=== PATIENT | female | born 1960 | race Caucasian/White ===

== ENCOUNTER 2018-07-08 07:56 | Emergency (ER) | payer BC ==
[2018-07-08] MEDS ORDERED: Ibuprofen TAB* 600 MG PO ONE (08:16)
[2018-07-08 08:20] VITALS: BP 142/80
--- NOTE | 2018-07-08 08:51 | UC ---
Lower Extremity/Ankle HPI - HPI Summary HPI Summary: 58-year-old woman comes in to clinic today with chief complaint of right ankle and lower leg pain. She slipped and fell this morning and the pain started that time. Very painful difficulty with any weightbearing. No numbness or weakness. The knee does not hurt the foot does not hurt. The pain is primarily in the lateral aspect of the ankle. - History of Current Complaint Chief Complaint: UCLowerExtremity Stated Complaint: RIGHT ANKLE INJURY Time Seen by Provider: 07/08/18 08:13 Pain Intensity: 8 - Allergies/Home Medications Allergies/Adverse Reactions: Allergies Allergy/AdvReac Type Severity Reaction Status Date / Time No Known Allergies Allergy Verified 07/08/18 08:12 Home Medications: Home Medications Amlodipine Besylate [Norvasc 10 mg tab] 10 mg PO DAILY 07/08/18 [History Confirmed 07/08/18] Cholecalciferol TAB* [Vitamin D TAB*] 1,000 unit PO DAILY 07/08/18 [History Confirmed 07/08/18] Iron 90 mg PO DAILY 07/08/18 [History Confirmed 07/08/18] Oxybutynin XL TAB* [Ditropan XL TAB*] 10 mg PO DAILY 07/08/18 [History Confirmed 07/08/18] Pantoprazole TAB (NF) [Protonix TAB (NF)] 40 mg PO DAILY 07/08/18 [History Confirmed 07/08/18] Spironolact/Hydrochlorothiazid [Spironolactone/Hydrochlor 25-25 mg] 1.5 tab PO DAILY 07/08/18 [History Confirmed 07/08/18] PMH/Surg Hx/FS Hx/Imm Hx Cardiovascular History: Hypertension GI/ History: Gastroesophageal Reflux - Surgical History Surgical History: None - Family History Known Family History: Positive: Non-Contributory - Social History Alcohol Use: Occasionally Substance Use Type: None Smoking Status (MU): Former Smoker When Did the Patient Quit Smoking/Using Tobacco: 15 years ago Review of Systems All Other Systems Reviewed And Are Negative: Yes Constitutional: Positive: Negative Skin: Positive: Negative Eyes: Positive: Negative ENT: Positive: Negative Respiratory: Positive: Negative Cardiovascular: Positive: Negative Gastrointestinal: Positive: Negative Motor: Positive: Negative Neurovascular: Positive: Negative Musculoskeletal: Positive: Other: - SEE HPI Neurological: Positive: Negative Psychological: Positive: Negative Is Patient Immunocompromised?: No Physical Exam Triage Information Reviewed: Yes Appearance: Well-Appearing, Well-Nourished, Pain Distress - MILD Vital Signs: Initial Vital Signs Temp 98.5 F 07/08/18 08:14 Pulse 77 07/08/18 08:14 Resp 20 07/08/18 08:14 BP 142/80 07/08/18 08:14 Pulse Ox 98 07/08/18 08:14 Vital Signs Reviewed: Yes Eyes: Positive: Conjunctiva Clear Neck exam: Normal Neck: Positive: Supple Respiratory: Positive: No respiratory distress Musculoskeletal: Positive: Other: - Patient is swollen and tender to palpation at the distal right fibula. She's also tender in the proximal fibula. Foot is nontender to palpation has good range motion normal capillary refill normal pulses no sensation deficit. Knee is nontender to palpation with full range of motion. Patient does not move the right ankle secondary to pain. Neurological Exam: Normal Neurological: Positive: Alert, Muscle Tone Normal Psychological Exam: Normal Psychological: Positive: Age Appropriate Behavior Skin Exam: Normal Lower Extremity Course/Dx - Course Course Of Treatment: Order Information: LOWER LEG RIGHT. Accession Number: [id number]. CPT: 95428. Indication: RIGHT ankle pain post fall. Comparison: No relevant prior exams available on the [facility] PACS for comparison. Technique: AP , mortise, and lateral views RIGHT ankle. AP and lateral views RIGHT lower. leg. REPORT AND IMPRESSION: #. Comminuted mildly impacted and moderately displaced fracture at the junction of the. distal diaphysis and distal metaphysis of the fibula. Up to 1 cm medial displacement of. segmental fracture fragments No additional fracture of the fibula or tibia evident. #. Normal talocrural and proximal tibia fibula articular alignment. #. Distal soft tissue swelling. Negative for subcutaneous emphysema. . <Electronically signed by Wagner Reinoso MD in [place]> 07/08/18 0840. Order Information: ANKLE RIGHT 3+VWS. Accession Number: [id number]. CPT: 17755. Indication: RIGHT ankle pain post fall. Comparison: No relevant prior exams available on the [facility] PACS for comparison. Technique: AP, mortise, and lateral views RIGHT ankle. AP and lateral views RIGHT lower. leg. REPORT AND IMPRESSION: #. Comminuted mildly impacted and moderately displaced fracture at the junction of the. distal diaphysis and distal metaphysis of the fibula. Up to 1 cm medial displacement of. segmental fracture fragments No additional fracture of the fibula or tibia evident. #. Normal talocrural and proximal tibia fibula articular alignment. # . Distal soft tissue swelling. Negative for subcutaneous emphysema. . <Electronically signed by Wagner Reinoso MD in [place]> 07/08/18. I discussed the x-rays with the patient. I placed the patient and the splint that iN a posterior and also stirrup splint. She was given crutches. Patient neurovascular intact after splint placement. Patient plans to follow-up with orthopedics in [place] so she was given a disc of her x-rays. We discussed that there is some displacement and that she needed close follow-up with orthopedics. - Differential Dx/Diagnosis Provider Diagnoses: RIGHT ANKLE FRACTURE Discharge - Sign-Out/Discharge Documenting (check all that apply): Patient Departure All imaging exams completed and their final reports reviewed: Yes - Discharge Plan Condition: Stable Disposition: HOME Prescriptions: traMADol TAB* [Ultram*] 50 mg PO Q6HR PRN #20 tab MDD 4 PRN Reason: Pain Patient Education Materials: Ankle Fracture (ED) Referrals: Rocio Phillips NP [Primary Care Provider] - Jimmie Sorto MD [Medical Doctor] - Additional Instructions: FOLLOW UP WITH ORTHOPEDICS. CALL THEM TODAY TO ARRANGE FOLLOW UP. GET RECHECKED FOR ANY WORSENING OF YOUR CONDITION OR QUESTIONS OR CONCERNS. - Billing Disposition and Condition Condition: STABLE Disposition: Home
== END 2018-07-08 09:44 | disposition home or self-care (01) ==
LOC: UCCORT 07:56
DX: S82.831A Other fracture of upper and lower end of right fibula, initial encounter for closed fracture (principal); W01.0XXA Fall on same level from slipping, tripping and stumbling without subsequent striking against object, initial encounter; Y92.9 Unspecified place or not applicable; I10 Essential (primary) hypertension; K21.9 Gastro-esophageal reflux disease without esophagitis; Z79.899 Other long term (current) drug therapy; Z87.891 Personal history of nicotine dependence
CPT/HCPCS: 99213; A9270-GY; G0463

== ENCOUNTER 2019-06-05 13:55 | Emergency (ER) | payer BC, OTHER ==
[2019-06-05 14:09] VITALS: BP 149/83
--- NOTE | 2019-06-05 14:18 | UC ---
Lower Extremity/Ankle HPI - HPI Summary HPI Summary: 58-year-old female presents with complaints of left lateral foot pain for the past week. No known injury. Reports she has a left knee meniscus tear and she is walking differently because she favors that knee. She is currently under treatment by , orthopedic surgery, in [place] for the meniscus tear. Describes the pain as a constant "burning" sensation. Worsens with walking and weightbearing. Denies bruising, swelling, numbness, or tingling. - History of Current Complaint Chief Complaint: UCLowerExtremity Stated Complaint: LT FOOT INJURY Time Seen by Provider: 06/05/19 14:11 Hx Obtained From: Patient Pain Intensity: 2 - Allergies/Home Medications Allergies/Adverse Reactions: Allergies Allergy/AdvReac Type Severity Reaction Status Date / Time No Known Allergies Allergy Verified 06/05/19 14:09 Home Medications: Home Medications Ibuprofen TAB* [Motrin TAB* 600 MG] 600 mg PO Q6H PRN 06/05/19 [History Confirmed 06/05/19] PMH/Surg Hx/FS Hx/Imm Hx Cardiovascular History: Hypertension GI/ History: Gastroesophageal Reflux Other GI/ History: OAB - Surgical History Surgical History: None Surgery Procedure, Year, and Place: D&C. hysteroscopy - Family History Known Family History: Positive: Non-Contributory - Social History Occupation: Employed Full-time Lives: With Family Alcohol Use: Occasionally Substance Use Type: None Smoking Status (MU): Former Smoker When Did the Patient Quit Smoking/Using Tobacco: 15 years ago Review of Systems All Other Systems Reviewed And Are Negative: Yes Constitutional: Positive: Negative Skin: Negative: Bruising Respiratory: Positive: Negative Cardiovascular: Positive: Negative Gastrointestinal: Positive: Negative Genitourinary: Positive: Negative Motor: Negative: Weakness Neurovascular: Negative: Decreased Sensation Musculoskeletal: Positive: Other: - See HPI Neurological: Positive: Negative Is Patient Immunocompromised?: No Physical Exam - Summary Physical Exam Summary: GENERAL APPEARANCE: Well developed, well nourished, alert and cooperative, and appears to be in no acute distress. CARDIAC: Normal S1 and S2. No S3, S4 or murmurs. Rhythm is regular. There is no peripheral edema, cyanosis or pallor. Extremities are warm and well perfused. Capillary refill is less than 2 seconds. Peripheral pulses intact. LUNGS: Clear to auscultation without rales, rhonchi, wheezing or diminished breath sounds. ABDOMEN: Positive bowel sounds. Soft, nondistended, nontender. No guarding or rebound. No masses or hepatosplenomegally. MUSKULOSKELETAL: ROM intact to all extremities. No joint erythema or tenderness. Normal muscular development. Limping gait. EXTREMITIES: Localized tenderness over the proximal 5th metatarsal without deformity, erythema, ecchymosis, edema, or lesions. Circulation and sensation intact. SKIN: Skin normal color, texture and turgor. Triage Information Reviewed: Yes Vital Signs: Initial Vital Signs Temp 99.3 F 06/05/19 14:04 Pulse 76 06/05/19 14:04 Resp 18 06/05/19 14:04 BP 149/83 06/05/19 14:04 Pulse Ox 97 06/05/19 14:04 Vital Signs Reviewed: Yes Diagnostics - Radiology No standard instances Radiology Interpretation Completed By: Radiologist Summary of Radiographic Findings: Order Information: FOOT LEFT 3+ VWS. INDICATION: Nontraumatic foot pain. TECHNIQUE: 3 views of the left foot were obtained. FINDINGS: The bones are in normal alignment. No fracture is seen. 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 The remaining joint spaces appear maintained. IMPRESSION: NO EVIDENCE FOR FRACTURE Lower Extremity Course/Dx - Course Course Of Treatment: 58-year-old female presents with complaints of left lateral foot pain for the past week. No known injury. Reports she has a left knee meniscus tear and she is walking differently because she favors that knee. She is currently under treatment by , orthopedic surgery, in [place] for the meniscus tear. Describes the pain as a constant "burning" sensation. Worsens with walking and weightbearing. Denies bruising, swelling, numbness, or tingling. Afebrile. Hypertensive otherwise vital signs stable. Patient had localized tenderness over the proximal 5th metatarsal without deformity, erythema, ecchymosis, edema, or lesions. Circulation and sensation intact. Foot x-ray showed no acute osseous injury. Reviewed results with the patient. Recommending conservative treatment for left foot pain likely of soft tissue origin. She is to follow-up with in 5-7 days if symptoms persist. Anticipatory guidance and warning symptoms were reviewed with the patient. Verbalizes understanding and agrees with plan of care. - Differential Dx/Diagnosis Differential Diagnosis/HQI/PQRI: Dislocation, Fracture (Closed), Strain, Other - Plantar fascitis Provider Diagnosis: Left foot pain Discharge ED - Sign-Out/Discharge Documenting (check all that apply): Patient Departure All imaging exams completed and their final reports reviewed: Yes - Discharge Plan Condition: Stable Disposition: HOME Patient Education Materials: Foot Sprain (ED) Referrals: Rocio Phillips, IRLANDA [Primary Care Provider] - Zachary CASTELLON,Eddie Cobos [Medical Doctor] - 5 Days Additional Instructions: The x-ray performed in the clinic today showed no evidence of a fracture. Rest the foot as much as possible. Apply ice to the affected area for 15-20 minutes at least 4 times a day to help with the pain and swelling. Elevate the foot to help reduce swelling. Take acetaminophen (Tylenol) or ibuprofen (Advil, Motrin) according to directions as needed for pain. Follow up with Dr. Sharma in 5-7 days if symptoms do not improve. Seek immediate medical attention if you have severe pain not managed with pain medication, you are unable to walk or bear any weight, develop numbness or tingling in the foot or toes, or have any worsening of symptoms. - Billing Disposition and Condition Condition: STABLE Disposition: Home
== END 2019-06-05 15:30 | disposition home or self-care (01) ==
LOC: UCCORT 13:55
DX: M79.672 Pain in left foot (principal); I10 Essential (primary) hypertension; S83.207D Unspecified tear of unspecified meniscus, current injury, left knee, subsequent encounter; Z87.891 Personal history of nicotine dependence; X58.XXXD Exposure to other specified factors, subsequent encounter
CPT/HCPCS: 99211; G0463